=== PATIENT | female | born 1995 | race Caucasian/White ===

== ENCOUNTER 2017-09-10 13:29 | Emergency (ER) | payer MEDICAID ==
[~2017-09-10] VITALS: Ht 167.6 cm; Wt 132.0 kg
[2017-09-10 17:18] VITALS: BP 122/84
== END 2017-09-10 17:23 | disposition home or self-care (01) ==
LOC: ER 13:39
DX: R06.00 Dyspnea, unspecified (principal); F41.0 Panic disorder [episodic paroxysmal anxiety]; F12.10 Cannabis abuse, uncomplicated; Z87.442 Personal history of urinary calculi; Z90.49 Acquired absence of other specified parts of digestive tract
CPT/HCPCS: 71010; 81025; 93005; 99284